=== PATIENT | female | born 1995 | race Two or more races ===

== ENCOUNTER 2016-05-03 16:37 | Inpatient (IN) | payer OTHER ==
[2016-06-05 13:46] LABS: ABSOLUTE LYMPHOCYTES (AUTO) 1.3 10^3/uL (0.5-4.7); ABSOLUTE MONOCYTES (AUTO) 0.4 10^3/uL (0.1-1.4); ABSOLUTE NEUT (AUTO) 11.2 10^3/uL (1.7-8.2); BASOPHILS % (AUTO) 0.3 % (0-2); EOSINOPHILS % (AUTO) 0.2 % (0-6); HEMATOCRIT 30.5 % (36.0-47.0); HEMOGLOBIN 9.7 g/dL (12.0-15.5); HGB HCT DIFFERENCE -1.4; LYMPHOCYTES % (AUTO) 10.3 % (13-45); MEAN CORPUSCULAR HEMOGLOBIN 26.2 pg (27.0-33.4); MEAN CORPUSCULAR HGB CONC 31.9 g/dL (32.0-36.0); MEAN CORPUSCULAR VOLUME 82 fl (80-97); MONOCYTES % (AUTO) 3.3 % (3-13); RED BLOOD COUNT 3.72 10^6/uL (3.72-5.28); RED CELL DISTRIBUTION WIDTH 24.7 % (11.5-14.0); SEGMENTED NEUTROPHILS % (AUTO) 85.9 % (42-78)
--- NOTE | 2016-06-05 14:00 | L&D Flow Sheet ---
LD Flowsheet Datetime Report Generated by CPN: 06/05/2016 14:00 Datetime: 06/05/2016 13:45 Vital Signs Stage of : Recovery (Yasemin Sivakumar, RN) Pain Pain Scale: 0 (Yasemin Sivakumar, RN) Pain Presence: None/Denies (Yasemin Sivakumar, RN) Pain Type: N/A (Yasemin Sivakumar, RN) Datetime: 06/05/2016 13:30 Vital Signs Stage of : Recovery (Yasemin Sivakumar, RN) Pain Pain Scale: 0 (Yasemin Sivakumar, RN) Pain Presence: None/Denies (Yasemin Sivakumar, RN) Pain Type: N/A (Yasemin Sivakumar, RN) Datetime: 06/05/2016 13:25 Assessment A Monitor Mode: External US (Claudia Proctor, RN) Pain Pain Scale: 0 (Claudia Proctor, RN) Pain Presence: None/Denies (Claudia Proctor, RN) Pain Type: N/A (Claudia Proctor, RN) Vaginal Exam Membrane Status: Ruptured (Claudia Proctor, STEVEN) Membranes Ruptured Date/Time: 06/05/2016 12:15 (Claudia Proctor, STEVEN) Vaginal Bleeding: None (Claudia Proctor, RN) Maternal Assessment Level of Consciousness: Fully Conscious (Claudia Proctor, RN) DTR's/Clonus: DTRs 2+; No Clonus (Claudia Proctor, RN) Headache: Denies (Claudia Proctor, RN) Breath Sounds, Left: Clear and Equal (Claudia Proctor, RN) Breath Sounds, Right: Clear and Equal (Claudia Proctor, RN) Nausea/Vomiting: Denies (Claudia Proctor, RN) RUQ Epigastric Pain: Denies (Claudia Proctor, RN) Datetime: 06/05/2016 13:16 NBP Sys/Hilaria/Mean (mmHg): 110 (QS system process) : 58 (QS system process) : 78 (QS system process) Pulse: 83 (QS system process) Datetime: 06/05/2016 13:15 Vital Signs Stage of : Recovery (Yasemin Sivakumar, RN) Pain Pain Scale: 0 (Yasemin Sivakumar, RN) Pain Presence: None/Denies (Yasemin Sivakumar, RN) Pain Type: N/A (Yasemin Sivakumar, RN) Datetime: 06/05/2016 13:02 NBP Sys/Hilaria/Mean (mmHg): 80 (QS system process) : 46 (QS system process) : 59 (QS system process) Pulse: 82 (QS system process) Datetime: 06/05/2016 13:00 Vital Signs Stage of : Recovery (Yasemin Shaver, RN) Pain Pain Scale: 0 (Yasemin Shaver RN) Pain Presence: None/Denies (Yasemin Shaver RN) Pain Type: N/A (Yasemin Sivakumar, RN) Membranes Ruptured Date/Time: 06/05/2016 12:40 (Claudia Proctor RN) Membranes Rupture Method: Spontaneous (Claudia Proctor RN) Amniotic Fluid Color: Clear (Claudia Proctor RN) Amniotic Fluid Amount: Small (Claudia Proctor RN) Amniotic Fluid Odor: Normal (Claudia Proctor RN) Datetime: 06/05/2016 12:48 Stage 2 Stage 2 Comments: viable girl; see delivery summary. (Claudia Proctor RN)
[2016-06-05 14:06] LABS: ANISOCYTOSIS 2+; BURR CELLS SLIGHT; OVALOCYTES SLIGHT; POIKILOCYTOSIS 2+; POLYCHROMASIA SLIGHT; TEAR DROP CELLS SLIGHT
[2016-06-05 14:07] LABS: PLATELET CLUMPS PRESENT
[2016-06-05] MEDS ORDERED: DIBUCAINE 1% OINTMENT 28 GM TP PRN (14:08)
[2016-06-05] MEDS ORDERED: DIPH/PERTUSS(ACELL)/TETANUS VAC/PF 0.5 ML SYR (>=10YO) IM PRN (14:08)
[2016-06-05] MEDS ORDERED: OXYTOCIN/NORMAL SALINE 1,000 ML IV PRN (14:08)
[2016-06-05] MEDS ORDERED: BENZOCAINE/MENTHOL AEROSOL SPRAY 56 ML TOP PRN (14:08)
[2016-06-05] MEDS ORDERED: ACETAMINOPHEN WITH CODEINE #3 TABLET PO PRN ×2 (14:08)
[2016-06-05] MEDS ORDERED: MEASLES,MUMPS&RUBELLA VACC/PF 0.5 ML VIAL SUBCUT PRN (14:08)
[2016-06-05] MEDS ORDERED: ZOLPIDEM TARTRATE 5 MG TABLET PO PRN (14:08)
[2016-06-05] MEDS ORDERED: MISOPROSTOL 0.2 MG TABLET ONE (14:35)
[2016-06-05] MEDS ORDERED: OXYTOCIN 10 UNIT/ML VIAL ONE (14:35)
--- NOTE | 2016-06-05 15:13 | Admission Physical ---
Datetime Report Generated by CPN: 06/05/2016 15:13 CURRENT ADMISSION Chief Complaint: Uterine Contractions; Suspected Ruptured Membranes Indication for Induction: Not Applicable Admit Plan: Admit to Unit; Initiate Labor Protocol ALLERGIES Medication Allergies: Yes Medication Allergies: eyrthromycin Latex: No Latex Allergies Food Allergies: none Environmental Allergies: none OBSTETRICAL HISTORY : 3 Para: 1 Term: 1 : 0 SAB: 0 IAB: 0 Ectopic: 0 Livin Cesareans: 0 VBACs: 0 Multiple Births: 0 Gestational Diabetes: No Rh Sensitization: No Incompetent Cervix: No TIM: No Infertility: No ART Treatment: No Uterine Anomaly: No IUGR: No Hx Previous C/S: No Macrosomia: No Hx Loss/Stillborn: No PIH: No Hx : No Placenta Previa/Abruption: No Depression/PP Depression: No PTL/PROM: No Post Hemorrhage: No SEE RECORDS Alcohol: No Marijuana : No Cocaine: No Other Illicit Drugs: No Cigarettes: Never Smoker. [id number] MEDICAL HISTORY Diabetes: No Blood Transfusion: No Pulmonary Disease (Asthma, TB): No Breast Disease: No Hypertension: No Fire Behavior Analyst Surgery: No Heart Disease: No Hosp/Surgery: No Autoimmune Disorder: No Anesthetic Complications: No Kidney Disease: No Abnormal Pap Smear: No Neuro/Epilepsy: No Psychiatric Disorders: No Other Medical Diseases: No Hepatitis/Liver Disease: No Significant Family History: No Varicosities/Phlebitis: No Trauma/Violence : No Thyroid Dysfunction: No INFECTIOUS HISTORY Gonorrhea: No Genital Herpes: No Chlamydia: No Tuberculosis: No Syphilis: No Hepatitis: No HIV/AIDS Exposure: No Rash or Viral Illness: No HPV: No PHYSICAL EXAM General: Normal HEENT: Normal Neurologic: Normal Thyroid: Deferred Heart: Normal Lungs: Normal Breast: Deferred Back: Normal Abdomen: Normal Genitourinary Exam: Normal Extremities: Normal DTRs: Normal Pelvic Type: Adequate Vital Signs: Reviewed; Within Normal Limits VAGINAL EXAM Dilatation: 10 Effacement: 100 Station: 3 MEMBRANES Membranes: Ruptured Amniotic Fluid Color: Clear FETUS A Monitoring: External US FHR- Baseline: 140 Variability: Moderate 6-25bpm Decelerations: None PLANS FOR LABOR AND DELIVERY Feeding Preference: Breast Benefit of Breast Feed Discussed: Yes Circumcision: N/A INFORMED CONSENT Signature: with User ID: [email or web address]
--- NOTE | 2016-06-05 15:28 | Delivery Summary ---
Del Sum A-C Datetime Report Generated by CPN: 06/05/2016 15:28 ADMISSION DATA Chief Complaint: Uterine Contractions; Suspected Ruptured Membranes Indication for Induction: Not Applicable Admission Impression: Postterm, Intrauterine ; Active Labor; Ruptured Membranes DELIVERY PERSONNEL Delivery Doctor:: Bruce Cordero, DO Labor and Delivery Nurse:: Yasemin Shaver RNdiesel motor mechanic Nurse:: Claudia Proctor RN Patch Finisher:: Harriet Hunt RN Automatic Die Cutting Machine Operator/BUILDING MAINTENANCE TECHNICIAN: Minnie Sam, DIE OPERATOR Additional Personnel: : Rona Mock, RN MATERNAL INFORMATION Delivery Anesthesia: None Medications After Delivery: Pitocin 10 Units IM Estimated Blood Loss (ml): 200 Maternal Complications: None Provider Comments: of viable female in CHRISTOPHER position Placenta delievered spontaneous and intact with 3v cord Fundus firm LABOR SUMMARY EDC: 06/04/2016 00:00 No. Babies in Womb: 1 Attempted: No Labor Anesthesia: None LABOR INFORMATION Reason for Induction: Not Applicable Onset of Labor: 06/05/2016 09:00 Complete Dilatation: 06/05/2016 12:43 Oxytocin: N/A Group B Beta Strep: Negative Antibiotics # of Doses: 0 Steroids Given: None Reason Steroids Not Administered: Not Applicable MEMBRANES Membranes Rupture Method: Spontaneous Rupture of Membranes: 06/05/2016 12:15 Length of Rupture (hr): 0.55 Amniotic Fluid Color: Clear Amniotic Fluid Amount: Small Amniotic Fluid Odor: Normal STAGES OF LABOR Stage 1 hr: 3 Stage 1 min: 43 Stage 2 hr: 0 Stage 2 min: 5 Stage 3 hr: 0 Stage 3 min: 4 Total Time in Labor hr: 3 Total Time in Labor min: 52 VAGINAL DELIVERY Laceration Extension: First Degree Laceration Type: Periurethral Laceration Repair: Yes Laceration Repair Note: b/l repaired with 2-0 chromic in usual fashion with good hemostasis Sponge Count Correct: Yes CSECTION DELIVERY CSection Incision: N/A BABY A INFORMATION Infant Delivery Date/Time: 06/05/2016 12:48 Method of Delivery: Vaginal Born in Route : No : N/A Forceps: N/A Vacuum Extraction: N/A Shoulder Dystocia : No PRESENTATION/POSITION BABY A Presentation: Cephalic Cephalic Presentation: Vertex Vertex Position: Left Occipital Anterior Breech Presentation: N/A PLACENTA INFORMATION BABY A Placenta Delivery Time : 06/05/2016 12:52 Placenta Method of Delivery: Spontaneous Placenta Status: Delivered SCORES BABY A Heart Rate 1 min: >100 bpm Resp Effort 1 min: Good Cry Reflex Irritability 1 min: Cough or Sneeze or Pulls Away Muscle Tone 1 min: Active Motion Color 1 min: Body [place], Extremities Blue Resuscitation Effort 1 min: Tactile Stimulation SCORE 1 MIN: 9 Heart Rate 5 min: >100 bpm Resp Effort 5 min: Good Cry Reflex Irritability 5 min: Cough or Sneeze or Pulls Away Muscle Tone 5 min: Active Motion Color 5 min: Body [place], Extremities Blue Resuscitation Effort 5 min: Tactile Stimulation SCORE 5 MIN: 9 INFORMATION BABY A Gestational Age at Delivery: 40.1 Gestational Status: Full Term- 39- 40.6 Weeks Outcome : Liveborn Infant Condition : Stable Sex: Female IDENTIFICATION BABY A Verification Date/Time: 06/05/2016 13:14 ID Band Number: [id number] Mother's Name Verified: Yes RN Verifying : Pedro Proctor, RN and H. Sivakumar, RN CORD INFORMATION BABY A No. Cord Vessels: 3 Nuchal Cord : N/A Cord Blood Taken: Yes-For Storage (Mom's Blood type +) Suction: Mouth ASSESSMENT BABY A Infant Complications: None Physical Findings at Delivery: Within Normal Limits Infant Respirations: Appears Normal Skin to Skin: Yes Copying Machine Mechanic/ALS Called : No Infant Care By: Pedro Proctor, RN Transferred To: Remains with Mother BABY B INFORMATION : N/A SIGNATURES Signature: with User ID: Jenny
[2016-06-05] MEDS ORDERED: LIDOCAINE 1% INJ-PF (10 MG/ML) 30 ML SDV ONE (16:58)
[2016-06-05] MEDS: FERROUS SULFATE 325 MG TABLET PO SCH (17:13)
[2016-06-05] MEDS: DOCUSATE SODIUM 100 MG CAPSULE PO SCH (17:13)
--- NOTE | 2016-06-05 19:00 | L&D Flow Sheet ---
LD Flowsheet Datetime Report Generated by CPN: 06/05/2016 19:00 Datetime: 06/05/2016 14:45 NBP Sys/Hilaria/Mean (mmHg): 83 (QS system process) : 56 (QS system process) : 66 (QS system process) Pulse: 83 (QS system process) Datetime: 06/05/2016 14:30 NBP Sys/Hilaria/Mean (mmHg): 83 (QS system process) : 59 (QS system process) : 67 (QS system process) Pulse: 71 (QS system process) Datetime: 06/05/2016 14:23 NBP Sys/Hilaria/Mean (mmHg): 92 (QS system process) : 55 (QS system process) : 69 (QS system process) Pulse: 84 (QS system process) Datetime: 06/05/2016 14:15 Vital Signs Stage of : Recovery (Yasemin Sivakumar, RN) Pain Pain Scale: 0 (Yasemin Sivakumar, RN) Pain Presence: None/Denies (Yasemin Sivakumar, RN) Pain Type: N/A (Yasemin Sivakumar, RN) Datetime: 06/05/2016 14:00 Vital Signs Stage of : Recovery (Yasemin Sivakumar, RN) Pain Pain Scale: 0 (Yasemin Sivakumar, RN) Pain Presence: None/Denies (Yasemin Sivakumar, RN) Pain Type: N/A (Yasemin Sivakumar, RN) Datetime: 06/05/2016 13:45 Vital Signs Stage of : Recovery (Yasemin Sivakumar, RN) Pain Pain Scale: 0 (Yasemin Sivakumar, RN) Pain Presence: None/Denies (Yasemin Sivakumar, RN) Pain Type: N/A (Yasemin Sivakumar, RN) Datetime: 06/05/2016 13:30 Vital Signs Stage of : Recovery (Yasemin Sivakumar, RN) Pain Pain Scale: 0 (Yasemin Sivakumar, RN) Pain Presence: None/Denies (Yasemin Sivakumar, RN) Pain Type: N/A (Yasemin Sivakumar, RN) Datetime: 06/05/2016 13:25 Assessment A Monitor Mode: External US (Claudia Proctor, RN) Pain Pain Scale: 0 (Claudia Proctor, RN) Pain Presence: None/Denies (Claudiagabino Plataon, RN) Pain Type: N/A (Claudia Proctor, RN) Vaginal Exam Membrane Status: Ruptured (Claudia Proctor, RN) Membranes Ruptured Date/Time: 06/05/2016 12:15 (Claudia Proctor, RN) Vaginal Bleeding: None (Claudia Proctor, RN) Maternal Assessment Level of Consciousness: Fully Conscious (Claudia Proctor, RN) DTR's/Clonus: DTRs 2+; No Clonus (Claudia Proctor, RN) Headache: Denies (Claudia Proctor, RN) Breath Sounds, Left: Clear and Equal (Claudia Proctor, RN) Breath Sounds, Right: Clear and Equal (Claudia Proctor, RN) Nausea/Vomiting: Denies (Claudia Proctor, RN) RUQ Epigastric Pain: Denies (Claudia Proctor, RN) Datetime: 06/05/2016 13:16 NBP Sys/Hilaria/Mean (mmHg): 110 (QS system process) : 58 (QS system process) : 78 (QS system process) Pulse: 83 (QS system process) Datetime: 06/05/2016 13:15 Vital Signs Stage of : Recovery (Yasemin Sivakumar, RN) Pain Pain Scale: 0 (Yasemin Sivakumar, RN) Pain Presence: None/Denies (Yasemin Sivakumar, RN) Pain Type: N/A (Yasemin Sivakumar, RN) Datetime: 06/05/2016 13:02 NBP Sys/Hilaria/Mean (mmHg): 80 (QS system process) : 46 (QS system process) : 59 (QS system process) Pulse: 82 (QS system process) Datetime: 06/05/2016 13:00 Vital Signs Stage of : Recovery (Yasemin Sivakumar, RN) Pain Pain Scale: 0 (Yasemin Shaver RN) Pain Presence: None/Denies (Yasemin Shaver RN) Pain Type: N/A (Yasemin Shaver RN) Membranes Ruptured Date/Time: 06/05/2016 12:40 (Claudia Proctor RN) Membranes Rupture Method: Spontaneous (Claudia Proctor RN) Amniotic Fluid Color: Clear (Claudia Proctor RN) Amniotic Fluid Amount: Small (Claudia Proctor RN) Amniotic Fluid Odor: Normal (Claudia Proctor RN) Datetime: 06/05/2016 12:48 Stage 2 Stage 2 Comments: viable girl; see delivery summary. (Claudia Proctor RN)
[2016-06-05 19:28] LABS: APPEARANCE,URINE CLOUDY; BILIRUBIN,URINE NEGATIVE (NEGATIVE); GLUCOSE, URINE NEGATIVE (NEGATIVE); KETONES,URINE NEGATIVE (NEGATIVE); LEUKOCYTE ESTERASE,URINE MODERATE (NEGATIVE); NITRITE,URINE NEGATIVE (NEGATIVE); PROTEIN,URINE 30 mg/dL (NEGATIVE); URINE SPECIFIC GRAVITY 1.012; UROBILINOGEN,URINE NEGATIVE mg/dL (<2.0)
[2016-06-05 19:47] LABS: URINE BARBITURATES SCREEN NEGATIVE; URINE METHADONE SCREEN NEGATIVE; URINE OPIATES LOW NEGATIVE; URINE PHENCYCLIDINE SCREEN NEGATIVE
[2016-06-05] MEDS: IBUPROFEN 800 MG TABLET PO SCH (21:16)
[2016-06-06] MEDS: IBUPROFEN 800 MG TABLET PO SCH ×3 (05:30→21:15)
--- NOTE | 2016-06-06 06:00 | L&D General Admission ---
General Admit Datetime Report Generated by CPN: 06/06/2016 06:00 INFORMATION Patient Age: 20 (05/03/2016 16:38:QS system process) EDC: 06/04/2016 00:00 (06/05/2016 13:00:Claudia Proctor RN) : 3 (06/05/2016 13:00:Claudia Proctor RN) Para: 1 (06/05/2016 13:00:Claudia Proctor RN) Term: 1 (06/05/2016 13:00:Claudia Proctor RN) : 0 (06/05/2016 13:00:Claudia Proctor RN) Spontaneous Abortions: 0 (06/05/2016 13:00:Claudia Proctor RN) Induced Abortions: 0 (06/05/2016 13:00:Claudia Proctor RN) Livin (06/05/2016 13:00:Claudia Procotr RN) Cesareans: 0 (06/05/2016 13:00:Claudia Proctor RN) VBACs: 0 (06/05/2016 13:00:Claudia Proctor RN) Ectopic: 0 (06/05/2016 13:00:Claudia Proctor RN) Multiple Births: 0 (06/05/2016 13:00:Claudia Proctor RN) Baby, Number in Womb: 1 (06/05/2016 13:00:Claudia Proctor RN) CARE [facility] Market Development [facility] (06/05/2016 13:00:Yasemin Shaver RN) Adequate Care: Yes (06/05/2016 13:00:Yasemin Shaver RN) Height (in): 63 (06/05/2016 18:08:QS system process) ALLERGIES Medication Allergy: Yes (06/05/2016 13:00:Claudia Proctor RN) Medication Allergies: erythromycin base (06/05/2016) (06/05/2016 15:15:QS system process) Latex Allergy: No Latex Allergies (06/05/2016 13:00:Claudia Proctor RN) Food Allergies: none (06/05/2016 13:00:Claudia Proctor RN) Environmental Allergies: none (06/05/2016 13:00:Claudia Proctor RN) COMMUNICATION Primary Language: Latvian (06/05/2016 13:00:Yasemin Shaver RN) Medical Tx Preferred Language: Latvian (06/05/2016 13:00:Yasemin Shaver RN) Communication Barrier(s): None (06/05/2016 13:00:Yasemin Shaver RN) DEMOGRAPHICS Address: [address] [place] [address] [place] [address] (05/03/2016 16:38:QS system process) Zipcode: [address] (05/03/2016 16:38:QS system process) Home (05/03/2016 16:38:QS system process) SSN: [id number] (05/03/2016 16:38:QS system process) Next of Kin Name: XAVI CEBALLOS (05/03/2016 16:38:QS system process) Next of Kin (05/03/2016 16:38:QS system process) Next of Kin Relationship: SPO (05/03/2016 16:38:QS system process) Date of : 1995 (05/03/2016 16:38:QS system process) Marital Status: (05/03/2016 16:38:QS system process) Sex: Female (05/03/2016 16:38:QS system process) Race: Other (05/03/2016 16:38:QS system process) Ethnicity: or (05/03/2016 16:38:QS system process) Mandaeism: Orthodoxy (05/03/2016 16:38:QS system process) DRUG AND ALCOHOL USE Alcohol: No (06/05/2016 13:00:Claudia Proctor RN) Cigarettes: Never Smoker. [id number] (06/05/2016 13:00:Claudia Proctor RN) Marijuana: No (06/05/2016 13:00:Claudia Proctor RN) Cocaine: No (06/05/2016 13:00:Claudia Proctor RN) Other Illicit Drugs: No (06/05/2016 13:00:Claudia Proctor RN) VACCINE HISTORY Tetanus Vaccine: No (06/05/2016 13:00:Claudia Proctor RN) Tdap Vaccine: No (06/05/2016 13:00:Claudia Proctor RN) Staffing Mgr: [facility] (06/05/2016 13:00:Claudia Proctor RN) Feeding Preference: Breast (06/05/2016 13:00:Yasemin Shaver RN) Benefit of Breast Feed Discussed: Yes (06/05/2016 13:00:Yasemin Shaver RN) Circumcision: N/A (06/05/2016 13:00:Claudia Proctor RN) Classes Attended: No (06/05/2016 13:00:Claudia Proctor RN) Tubal Ligation: No (06/05/2016 13:00:Claudia Proctor RN) Tubal Authorization Signed: N/A (06/05/2016 13:00:Claudia Proctor RN) Consent: N/A (06/05/2016 13:00:Claudia Proctor RN) Consent Signed: N/A (06/05/2016 13:00:Claudia Proctor RN) Support Person: Xavi Ceballos (06/05/2016 13:00:Claudia Proctor RN) Support Person Relationship: (06/05/2016 13:00:Claudia Proctor RN) Cultural/Spritual Practice: No (06/05/2016 13:00:Claudia Proctor RN) Spir/Cult Dietary Needs: No (06/05/2016 13:00:Claudia Proctor RN) LIVING SITUATION/DISCHARGE PLAN Living Arrangements: House (06/05/2016 13:00:Claudia Proctor RN) Adequate Access to:: Electric; Heat; Refrigeration; Plumbing/Running water; Phone; Transportation (06/05/2016 13:00:Claudia Proctor RN) WIC Program: Yes (06/05/2016 13:00:Claudia Proctor RN) Discharge Esthetician Person: Xavi Ceballos (06/05/2016 13:00:Claudia Proctor RN) Person to Help after Discharge: Xavi Ceballos (06/05/2016 13:00:Claudia Proctor RN) Currently Using Commun Resources: Yes (06/05/2016 13:00:Claudia Proctor RN) Car Seat for Discharge: Yes (06/05/2016 13:00:Claudia Proctor RN) Adoption Requested: No (06/05/2016 13:00:Claudia Proctor RN) Pt Contact w/infant Post : N/A (06/05/2016 13:00:Claudia Proctor RN) LABS Hemoglobin: 9.7 L (06/05/2016 13:21:QS system process) Hematocrit: 30.5 L (06/05/2016 13:21:QS system process) MCV: 82 (06/05/2016 13:21:QS system process) Group Beta Strep: Negative (06/05/2016 13:00:Claudia Proctor RN) OB/PREVIOUS HISTORY History of Previous : No (06/05/2016 13:00:Claudia Proctor RN) History of Gestational Diabetes: No (06/05/2016 13:00:Claudia Proctor RN) History of PIH: No (06/05/2016 13:00:Claudia Proctor RN) History of Incompetent Cervix: No (06/05/2016 13:00:Claudia Proctor RN) History of Placenta Previa/Abrup: No (06/05/2016 13:00:Claudia Proctor RN) History of Macrosomia: No (06/05/2016 13:00:Claudia Proctor RN) History of IUGR: No (06/05/2016 13:00:Claudia Proctor RN) History of Hemorrhage: No (06/05/2016 13:00:Claudia Proctor RN) History of Loss/Stillborn: No (06/05/2016 13:00:Claudia Proctor RN) History of : No (06/05/2016 13:00:Claudia Proctor RN) History of D (Rh) Sensitization: No (06/05/2016 13:00:Claudia Proctor RN) History Recurrent Loss/Stillborn: No (06/05/2016 13:00:Claudia Proctor RN) History Depression/PP Depression: No (06/05/2016 13:00:Claudia Proctor RN) History of Uterine Anomaly/TIM: No (06/05/2016 13:00:Claudia Proctor RN) History of Infertility: No (06/05/2016 13:00:Claudia Proctor RN) History of ART Treatment: No (06/05/2016 13:00:Claudia Proctor RN) History of TIM: No (06/05/2016 13:00:Claudia Proctor RN) MEDICAL HISTORY Med Hx Diabetes: No (06/05/2016 13:00:Claudia Proctor RN) Med Hx Hypertension: No (06/05/2016 13:00:Claudia Proctor RN) Med Hx Heart Disease: No (06/05/2016 13:00:Claudia Proctor RN) Med Hx Autoimmune Disorder: No (06/05/2016 13:00:Claudia Proctor RN) Med Hx Kidney Disease/UTI: No (06/05/2016 13:00:Claudia Proctor RN) Med Hx Neurologic/Epilepsy: No (06/05/2016 13:00:Claudia Proctor RN) Med Hx Psychiatric Disorders: No (06/05/2016 13:00:Claudia Proctor RN) Med Hx Hepatitis/Liver Disease: No (06/05/2016 13:00:Claudia Proctor RN) Med Hx Varicosities/Phlebitis: No (06/05/2016 13:00:Claudia Proctor RN) Med Hx Thyroid Dysfunction: No (06/05/2016 13:00:Claudia Proctor RN) Med Hx Trauma/Violence: No (06/05/2016 13:00:Claudia Proctor RN) Med Hx Blood Transfusion: No (06/05/2016 13:00:Claudia Proctor RN) Med Hx Pulmonary (Asthma,TB): No (06/05/2016 13:00:Claudia Proctor RN) Med Hx Breast: No (06/05/2016 13:00:Claudia Proctor RN) Med Hx ELECTRONIC CONTROLS REPAIRER SUPERVISOR Surgery: No (06/05/2016 13:00:Claudia Proctor RN) Med Hx Hospitalization/Surgery: No (06/05/2016 13:00:Claudia Proctor RN) Med Hx Anesthetic Complications: No (06/05/2016 13:00:Clauida Proctor RN) Med Hx Abnormal Pap Smear: No (06/05/2016 13:00:Claudia Proctor RN) Other Medical Diseases: No (06/05/2016 13:00:Claudia Proctor RN) Med Hx Significant Family Hx: No (06/05/2016 13:00:Claudia Proctor RN) INFECTIOUS HISTORY Inf Hx Gonorrhea: No (06/05/2016 13:00:Claudia Proctor RN) Inf Hx Chlamydia: No (06/05/2016 13:00:Claudia Proctor RN) Inf Hx Syphilis: No (06/05/2016 13:00:Claudia Proctor RN) Inf Hx HIV/AIDS: No (06/05/2016 13:00:Claudia Proctor RN) Inf Hx Human Papilloma Virus: No (06/05/2016 13:00:Claudia Proctor RN) Inf Hx Pt/Partner Genital Herpes: No (06/05/2016 13:00:Claudia Proctor RN) Inf Hx Tuberculosis/Exposure: No (06/05/2016 13:00:Claudia Proctor RN) Inf Hx Hepatitis B,C: No (06/05/2016 13:00:Claudia Proctor RN) Inf Hx Rash or Viral Illness: No (06/05/2016 13:00:Claudia Proctor RN) GENETIC HISTORY Gen Hx Age >=35 at MADAN: No (06/05/2016 13:00:Claudia Proctor RN) Gen Hx Thalassemia: No (06/05/2016 13:00:Claudia Proctor RN) Gen Hx Congenital Heart Defect: No (06/05/2016 13:00:Claudia Proctor RN) Gen Hx Neural Tube Defect: No (06/05/2016 13:00:Claudia Proctor RN) Gen Hx Down's Syndrome: No (06/05/2016 13:00:Claudia Proctor RN) Gen Hx Alex-Sachs: No (06/05/2016 13:00:Claudia Proctor RN) Gen Hx Isael: No (06/05/2016 13:00:Claudia Proctor RN) Gen Hx Familial Dysautonomia: No (06/05/2016 13:00:Claudia Proctor RN) Gen Hx Sickle Cell Disease/Trait: No (06/05/2016 13:00:Claudia Proctor RN) Gen Hx Hemophilia/Blood Disorder: No (06/05/2016 13:00:Claudia Proctor RN) Gen Hx Muscular Dystrophy: No (06/05/2016 13:00:Claudia Proctor RN) Gen Hx Cystic Fibrosis: No (06/05/2016 13:00:Claudia Proctor RN) Gen Hx Huntingtons Chorea: No (06/05/2016 13:00:Claudia Proctor RN) Gen Hx Mental Retardation/Autism: No (06/05/2016 13:00:Claudia Proctor RN) Gen Hx Tested for Fragile X: No (06/05/2016 13:00:Claudia Proctor RN) Gen Hx Other Inher/Chromosomal: No (06/05/2016 13:00:Claudia Proctor RN) Gen Hx Maternal Metabolic DO: No (06/05/2016 13:00:Claudia Proctor RN) Gen Hx Pt Father or FOB Defect: No (06/05/2016 13:00:Claudia Proctor RN) Gen Hx Other Genetic History: No (06/05/2016 13:00:Claudia Proctor RN) Gen Hx Drugs/Meds since LMP: No (06/05/2016 13:00:Claudia Proctor RN)
--- NOTE | 2016-06-06 06:00 | L&D Current Admission ---
Current Admit Datetime Report Generated by CPN: 06/06/2016 06:00 ADMISSION INFORMATION Current Admit Date/Time: 06/05/2016 12:50 (06/05/2016 12:50:Claudia Proctor RN) Reason for Admission: Onset of Labor; Rupture of Membranes (06/05/2016 12:50:Claudia Proctor RN) Chief Complaint: Contractions (06/05/2016 13:25:Claudia Proctor RN) Medications During : Ferrous Sulfate (Iron); Vitamin (06/05/2016 12:50:Claudia Proctor RN) EGA per Dates: 40.1 (06/05/2016 13:00:QS system process) Admitted From: Home (06/05/2016 12:50:Claudia Proctor RN) Reason for Induction: Not Applicable (06/05/2016 12:50:Claudia Proctor RN) Records Available: Yes (06/05/2016 12:50:Claudia Proctor RN) General Admission Information: Reviewed; Updated (06/05/2016 12:50:Claudia Proctor RN) General Admission Reviewed By: Pedro Proctor RN (06/05/2016 12:50:Claudia Proctor RN) BELONGINGS/ADVANCED DIRECTIVES Valuables/Personal Effects: Purse/Wallet; Cell Phone (06/05/2016 12:50:Claudia Proctor RN) Other Belongings: clothing (06/05/2016 12:50:Claudia Proctor RN) Disposition of Belongings: Kept with Patient (06/05/2016 12:50:Claudia Proctor RN) Durable Power of Land Leasing Information Clerk: No (06/05/2016 12:50:Claudia Proctor RN) Living Will: No (06/05/2016 12:50:Claudia Proctor RN) Organ Donor: No (06/05/2016 12:50:Claudia Proctor RN) Pt Rights Information Given: Yes (06/05/2016 12:50:Claudia Proctor RN) Pt Understands Pt Rights: Yes (06/05/2016 12:50:Claudia Proctor RN) LEARNING ASSESSMENT Knowledge Level: Understands L_D Process; Understands Care Activities; Had Pre-Hospital Education; Understands Diagnosis (06/05/2016 12:50:Claudia Proctor RN) Barriers to Learning: None (06/05/2016 12:50:Claudia Proctor RN) Learning Readiness: Motivated (06/05/2016 12:50:Claudia Proctor RN) Learns Best By: 1 to 1 Instruction; Demonstration (06/05/2016 12:50:Claudia Proctor RN) Learning Needs: Labor and Delivery Process; Pain Management; Symptoms to Report; Treatment Plan; Medication; Diagnosis; Nutrition; Equipment; Infant Care; Community Resources (06/05/2016 12:50:Claudia Proctor RN) DOMESTIC VIOLANCE SCREENING Dom Viol Threatened/Hurt: No (06/05/2016 12:50:Claudia Proctor RN) Hx of Abuse/Neglect past 2yrs: No (06/05/2016 12:50:Claudia Proctor RN) Feel Unsafe Going Home: No (06/05/2016 12:50:Claudia Proctor RN) Addt'l Observ Indicating Abuse: No (06/05/2016 12:50:Claudia Proctor RN) Reason Unable to Complete Screen: N/A, Screen Completed (06/05/2016 12:50:Claduia Proctor RN) Considered Personal Harm/Suicide: No (06/05/2016 12:50:Claudia Proctor RN) NUTRITIONAL/FUNCTIONAL SCREENING Problem with Appetite >5 Days: No (06/05/2016 12:50:Claudia Proctor RN) Chew/Swallow Difficulties: No (06/05/2016 12:50:Claudia Proctor RN) Inappropriate Wt Gain/Loss: No (06/05/2016 12:50:Claudia Proctor RN) Presence Skin Breakdown/Ulcer: No (06/05/2016 12:50:Claudia Proctor RN) Special Diet: No (06/05/2016 12:50:Claudia Proctor RN) Pt Requests Maintenance Controller Visit: No (06/05/2016 12:50:Claudia Proctor RN) Hx of Any of the Following?: N/A (06/05/2016 12:50:Claudia Proctor RN) New Diagnosis of: N/A (06/05/2016 12:50:Claudia Proctor RN) Requires Assist w/Ambulation: No (06/05/2016 12:50:Claudia Proctor RN) Uses Assist Device to Ambulate: No (06/05/2016 12:50:Claudia Proctor RN) Pt Requires Help w/ADL's: No (06/05/2016 12:50:Claudia Proctor RN)
--- NOTE | 2016-06-06 06:15 | L&D Care Plan ---
LD CARE PLANS Datetime Report Generated by CPN: 06/06/2016 06:15 Datetime: 06/05/2016 13:05 Pain State: Actual (Harriet Hunt RN) Related To: Labor and Delivery Process; Post (Harriet Hunt RN) Goal(s): Patients Pain will be Assessed and Managed; Patient will Verbalize Adequate Relief of Pain or the Ability to [place] with Current Pain (Harriet Hunt RN) Interventions: Assess Pain Severity on Scale of 0 (None) to 5 (Severe); Assess Type, Location and Intensity of Pain Each Time Client Reports Discomfort and Notify Provider if Unusal Pain Develops; Encourage Proper Breathing and Relaxation Techniques; Offer Alternatives Such as Repositioning, Calm Environment, Massages, Diversional Activities, Ice Pack, Splinting, and Ambulation; Administer Analgesics as Ordered; Assist with Epidural Placement as Appropriate; Evaluate Therapeutic Effectiveness of Medication and Treatments (Harriet Hunt RN) Outcome: Patient will Report Absence or Relief of Pain Consistent with Established Pain Goal (Harriet Hunt RN) Status: Ongoing (Harriet Hunt RN) Outcome: Patient will have a Decrease in Signs and Symptoms of Discomfort (Harriet Hunt RN) Status: Ongoing (Harriet Hunt RN) Outcome: Pain will be Controlled During Procedures (Harriet Hunt RN) Status: Ongoing (Harriet Hunt RN) Impaired Skin Integrity State: Actual (Harriet Hunt RN) Related To: Vaginal Delivery (Harriet Hunt RN) Goal(s): Patient will Maintain Optimal Skin Integrity, Free of Breakdown, Injury or Infection (Harriet Hunt RN) Interventions: Complete Screening for Pressure Ulcer Risk and Initiate Protocol per Hospital Policy; Monitor Site of Skin Impairment for Color Changes, Redness, Swelling, Warmth, Pain or Other Signs of Infection; Encourage and Assist with Position Changes; Monitor Patient's Mobility Status; Provide Adequate Nutrition and Fluids; Teach Patient Appropriate Hygienic Care; Teach Patient/Family Skin Care Management (Harriet Hunt RN) Outcome: Patient will not have Evidence of Injury Such as Skin Breakdown, Scrapes, Cuts, or Bruising (Harriet Hunt RN) Status: Ongoing (Harriet Hunt RN) Outcome: Patient will Report Any Altered Sensation or Pain at Site of Skin Impairment (Harriet Hutn RN) Status: Ongoing (Harriet Hunt RN) Outcome: Patients Incisions and Wounds will be without Signs or Symptoms of Infection (Harriet Hunt RN) Status: Ongoing (Harriet Hunt RN) Outcome: Patient will Demonstrate Understanding of Plan to Heal Skin and Prevent Reinjury and Verbalize Risk Factors (Harriet Hunt RN) Status: Ongoing (Harriet Hunt RN) Nutrition State: Not Applicable (Harriet Hunt RN)
[2016-06-06 08:07] LABS: HEMATOCRIT 29.1 % (36.0-47.0); HEMOGLOBIN 9.3 g/dL (12.0-15.5); HGB HCT DIFFERENCE -1.2; MEAN CORPUSCULAR HGB CONC 31.8 g/dL (32.0-36.0); MEAN CORPUSCULAR VOLUME 82 fl (80-97); RED BLOOD COUNT 3.56 10^6/uL (3.72-5.28); RED CELL DISTRIBUTION WIDTH 24.4 % (11.5-14.0); WHITE BLOOD COUNT 13.2 10^3/uL (4.0-10.5)
--- NOTE | 2016-06-06 10:12 | PDOC PROGRESS REPORT ---
Subjective-OB Subjective: Post Delivery Day: 21 year old. Denies any needs at this time Doing well, no c/o, scant bleeding, breast feeding, voiding, ambulating Physical Exam (OB) Vital Signs: Temp Pulse Resp BP Pulse Ox 97.9 F 77 17 99/49 L 99 06/06/16 07:12 06/06/16 07:12 06/06/16 07:12 06/06/16 07:12 06/06/16 07:12 Intake & Output 06/05/16 06/06/16 06/07/16 05:59 06:59 06:59 Intake Total Balance Weight - Lochia Lochia Amount: Scant < 10 ml Lochia Color: Rubra/Red - Abdomen Description: Tender, Soft Hernia Present: No Fundal Description: Firm, Midline Fundal Height: u/u - u/2 Objective-Diagnostic Laboratory: 06/06/16 07:49 06/05/16 06/05/16 06/05/16 13:21 13:21 19:15 WBC 13.0 H RBC 3.72 Hgb 9.7 L Hct 30.5 L MCV 82 MCH 26.2 L MCHC 31.9 L RDW 24.7 H Plt Count 286 Seg Neutrophils % 85.9 H Lymphocytes % 10.3 L Monocytes % 3.3 Eosinophils % 0.2 Basophils % 0.3 Absolute Neutrophils 11.2 H Absolute Lymphocytes 1.3 Absolute Monocytes 0.4 Absolute Eosinophils 0.0 Absolute Basophils 0.0 Urine Color RED Urine Appearance CLOUDY Urine pH 8.0 Ur Specific [place] 1.012 Urine Protein 30 H Urine Glucose (UA) NEGATIVE Urine Ketones NEGATIVE Urine Blood LARGE H Urine Nitrite NEGATIVE Ur Leukocyte Esterase MODERATE H Blood Type A POSITIVE Antibody Screen NEGATIVE 06/06/16 07:49 WBC 13.2 H RBC 3.56 L Hgb 9.3 L Hct 29.1 L MCV 82 MCH 26.0 L MCHC 31.8 L RDW 24.4 H Plt Count 263 Seg Neutrophils % Lymphocytes % Monocytes % Eosinophils % Basophils % Absolute Neutrophils Absolute Lymphocytes Absolute Monocytes Absolute Eosinophils Absolute Basophils Urine Color Urine Appearance Urine pH Ur Specific [place] Urine Protein Urine Glucose (UA) Urine Ketones Urine Blood Urine Nitrite Ur Leukocyte Esterase Blood Type Antibody Screen Assessment and Plan(PN) - Assessment and Plan (1) Normal vaginal delivery Is this a current diagnosis for this admission?: Yes - Time Spent with Patient Time with patient: Less than 15 minutes Medications reviewed and adjusted accordingly: Yes - Disposition Anticipated Discharge: Home Within: within 24 hours
[2016-06-06] MEDS: SENNOSIDES/DOCUSATE 8.6-50 MG 1 EACH TABLET PO SCH (10:15)
[2016-06-06] MEDS: DOCUSATE SODIUM 100 MG CAPSULE PO SCH ×2 (10:15→17:26)
[2016-06-06] MEDS: PRENATAL VITAMIN W-O CA NO5/FE FUMARATE/FA CAPSULE PO SCH (10:15)
[2016-06-06] MEDS: FERROUS SULFATE 325 MG TABLET PO SCH ×2 (10:15→17:26)
[2016-06-07] MEDS: IBUPROFEN 800 MG TABLET PO SCH ×2 (05:45→13:58)
[2016-06-07 08:42] VITALS: BP 98/55
[2016-06-07] MEDS: DOCUSATE SODIUM 100 MG CAPSULE PO SCH ×2 (09:58→18:05)
[2016-06-07] MEDS: PRENATAL VITAMIN W-O CA NO5/FE FUMARATE/FA CAPSULE PO SCH (09:58)
[2016-06-07] MEDS: FERROUS SULFATE 325 MG TABLET PO SCH ×2 (09:58→18:04)
[2016-06-07] MEDS: SENNOSIDES/DOCUSATE 8.6-50 MG 1 EACH TABLET PO SCH (09:58)
--- NOTE | 2016-06-07 11:18 | PDOC DISCHARGE SUMMARY ---
Final Diagnosis Discharge Date: 06/07/16 Discharge Data - Discharge Medication Home Medications: Ferrous Sulfate [Iron] 325 mg PO DAILY 06/06/16 Vit No.130/Iron/FA [ Tablet] 1 tab PO DAILY 06/06/16 Reason(s) for Admission: Onset of Labor Procedures: NST Intrapartum Procedure(s): Spontaneous Vaginal Delivery Complication(s): Laceration-Periurethral Laceration-Degree: 1st - Diagnosis Test Laboratory: Temp Pulse Resp BP Pulse Ox 98.1 F 76 16 98/55 L 99 06/07/16 08:03 06/07/16 08:03 06/07/16 08:03 06/07/16 08:03 06/07/16 08:03 06/05/16 06/05/16 06/06/16 13:21 19:15 07:49 RBC 3.72 3.56 L Hgb 9.7 L 9.3 L Hct 30.5 L 29.1 L Urine Opiates Screen NEGATIVE - Discharge information/Instructions Discharge Activity: Activity As Tolerated, No Lifting Over 10 Pounds, Pelvic Rest, No tub bath Discharge Diet: Regular Disposition: HOME, SELF-CARE Follow up with: [facility] in: 4, Weeks
== END 2016-06-07 18:40 | disposition home or self-care (01) | DRG 775 ==
LOC: UNDOADMIN 16:37 → EH 16:37 → LR 06-05 12:52 → 2S 06-05 15:12
PROVIDERS: ADMIT Obstetrics & Gynecology; ATTEND Obstetrics & Gynecology
PROC: 0UQMXZZ Repair Vulva, External Approach (ICD-10-PCS; principal; 2016-06-05)
PROC: 10E0XZZ Delivery of Products of Conception, External Approach (ICD-10-PCS; 2016-06-05)
PROC: 4A1HXCZ Monitoring of Products of Conception, Cardiac Rate, External Approach (ICD-10-PCS; 2016-06-05)
DX: O71.82 Other specified trauma to perineum and vulva (principal); O48.0 Post-term pregnancy; Z37.0 Single live birth; Z3A.40 40 weeks gestation of pregnancy
CPT/HCPCS: 36415; 80307; 81005; 85025; 85027; 86592; 86850; 86900; 86901; J2590; J3490